=== PATIENT | male | born 1980 | race American Indian/Alaskan Native ===

== ENCOUNTER 2024-05-19 18:07 | Emergency (ER) | payer MEDICAID, SELFPAY ==
[2024-05-19 18:08] VITALS: BP 140/87; PULSE 97; RESP 18; TEMP 36.8; O2SAT 98; BMI 38.6
[2024-05-19 18:15] VITALS: PULSE 90; RESP 18; O2SAT 99; BMI 38.6
--- NOTE | 2024-05-19 19:53 | XR_ITS ---
Examination: PA chest single view Technique: Upright PA chest single view Exam date and time: May 19, 20242034 hrs. Comparison August 09, 2023 Indications: Chest pain today. Findings: Normal heart size Lungs are clear. The osseous structures are intact Impression: No active disease
--- NOTE | 2024-05-19 19:53 | XR_ITS ---
Examination: Duplex scan of the lower extremity, unilateral left complete Date and time of exam: May 19, 1999 202 hrs. Indications: Onset left leg pain today Technique: Duplex scan of the extremity veins using B-mode/grayscale imaging and Doppler spectral analysis and color flow Attention is directed to internal echogenicity, compression and augmentation involving these veins, color flow assessment, spectral analysis Findings: Major deep venous structures in the extremity demonstrate normal course and caliber. There is no evidence of deep vein thrombosis. Normal color flow and spectral analysis Impression: Negative for DVT..
--- NOTE | 2024-05-19 19:55 | EKG_ITS ---
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1980 Requested By: Roxana Truong Order Number: [id number] Reading MD: Roxana Truong Measurements Intervals Ferguson Rate: 101 P: 21 SD: 116 QRS: 41 QRSD: 103 T: -7 QT: 340 QTc: 443 Interpretive Statements SINUS TACHYCARDIA WITH SHORT SD INTERVAL INCOMPLETE RIGHT BUNDLE BRANCH BLOCK [90+ ms QRS DURATION, TERMINAL R IN V1/V2, 40+ ms S IN I/aVL/V4/V5/V6] POSSIBLE SEPTAL MYOCARDIAL INFARCTION , PROBABLY OLD [30 ms Q WAVE IN V1/V2] POSSIBLE INFERIOR MYOCARDIAL INFARCTION , OF INDETERMINATE AGE [30 ms Q WAVE IN II/aVF] Compared to ECG 08/09/2023 09:59:22 Short SD interval now present Incomplete right bundle-branch block now present Myocardial infarct finding now present Sinus rhythm no longer present /store/S0/[id number]/ecg/[id number].pdf
--- NOTE | 2024-05-19 19:56 | PD.EDCHEST ---
ED Chest Pain RME/HPI General Chief Complaint: Chest Pain Stated Complaint: CHEST PAIN Time Seen by Provider: 05/19/24 19:18 Arrival date/time: 05/19/24 18:07 RME / HPI RME / HPI narrative: 43-year-old male patient with significant history of diabetes mellitus, came in for evaluation regarding left-sided chest pain. Onset of symptoms as left-sided chest pain, described as burning-like sensation, severity moderate. Onset of symptoms since 5 PM today. Patient also complained of left lower leg pain and tingling sensation, for several days now. Patient denies any cough denies any other complaints no medications taken prior to arrival. Related Data Home Medications ?Medication ?Instructions ?Recorded ?Confirmed atorvastatin 10 mg tablet 10 mg PO QDAY 09/05/21 09/05/21 metformin 500 mg tablet,extended 500 mg PO QDAY 09/05/21 09/05/21 release 24 hr Previous Rx's ?Medication ?Instructions ?Recorded gabapentin 300 mg capsule 300 mg PO TID #60 caps 09/05/21 ondansetron 4 mg disintegrating 4 mg PO Q12H PRN nausea and 06/22/22 tablet vomiting #4 tabs ibuprofen 800 mg tablet 800 mg PO Q8H PRN pain #20 tabs 03/18/23 pantoprazole 40 mg tablet,delayed 40 mg PO QDAY #30 tabs 05/19/24 release (Protonix) Allergies Allergy/AdvReac Type Severity Reaction Status Date / Time cantaloupe Allergy Intermediate Swelling Verified 03/18/23 08:59 of Lip/Tongue/Throat Review of Systems Review of Systems Narrative Review of Systems: Review of system reviewed and within normal limits except mentioned in HPI ED Exam Narrative Physical exam: VITAL SIGNS: Reviewed. GENERAL APPEARANCE: Alert and interactive, follows commands, no acute distress, HEAD AND FACE: Non-traumatic. ENT: PERRL, pink conjunctivitis, eyelid no trauma, Mucous membrane moist. NECK: Supple, nontender, no nuchal rigidity. CHEST: No tenderness, no crepitus, no paradoxical movement, no retractions. LUNGS: Clear, well ventilated, symmetric, no rales, no wheezing, no ronchi, no stridor, good breath sounds bilaterally. HEART: Regular rate, regular rhythm, no murmur, no gallops. ABDOMEN: Soft, positive bowel sounds, nondistended, no guarding, nontender, no rebound, no masses, RECTAL: Deferred. GENITAL: Deferred. NEUROLOGICAL: Gross motor function intact sensory function intact, Appropriate for age. MUSCULOSKELETAL: low back nontender, full range of motion. EXTREMITIES: Left lower leg tenderness, mild swelling, no redness, full range of motion. SKIN: Color pink, dry, no rash, no lacerations, no abrasions, no contusions. LYMPHATICS: Deferred. Course Quality Measures none Orders Category Date Time Status EKG (ED ONLY) *Do not use* NOW Care 05/19/24 19:55 Completed EKG (ED Only) Stat Exams 05/19/24 19:55 Draft US venous doppler LE LT Stat Exams 05/19/24 19:53 Completed XR chest 1V Stat Exams 05/19/24 19:53 Completed B-Type Natriuretic Peptide Stat Lab 05/19/24 21:01 Completed CBC Stat Lab 05/19/24 21:01 Completed Comprehensive Metabolic Panel Stat Lab 05/19/24 21:01 Completed Drug Screen,Urine Stat Lab 05/19/24 20:27 Completed Partial Thromboplastin Time Stat Lab 05/19/24 21:01 Completed Prothrombin Time with INR Stat Lab 05/19/24 21:01 Completed Troponin I Stat Lab 05/19/24 21:01 Completed Urinalysis, C/S if Indicated Stat Lab 05/19/24 20:27 Completed Vital Signs Vital signs: Vital Signs Temperature 98.2 F 05/19/24 18:08 Pulse Rate 97 05/19/24 18:08 Respiratory Rate 18 05/19/24 18:08 Blood Pressure 140/87 H 05/19/24 18:08 Pulse Oximetry (%) 98 05/19/24 18:08 Oxygen Delivery Method Nasal Cannula 05/19/24 18:08 Oxygen Flow Rate 2 05/19/24 18:08 Chest Pain MDM Narrative MDM Narrative:: 43-year-old male patient with significant history of diabetes mellitus, came in for evaluation regarding left-sided chest pain. Onset of symptoms as left-sided chest pain, described as burning-like sensation, severity moderate. Onset of symptoms since 5 PM today. Patient also complained of left lower leg pain and tingling sensation, for several days now. Patient denies any cough denies any other complaints no medications taken prior to arrival. Patient's cardiac workup today all came back normal. Troponin is normal. Ultrasound of the leg came back unremarkable. Chest x-ray also came back normal. Patient tested positive for marijuana. Patient data External records reviewed:: None Clinical information provided by:: none Social determinants that could affect healthcare access:: none Patient has the following chronic illnesses:: None How is presenting disease/condition affected by chronic disease/condition?: no chronic disease Evaluation data The following diagnostics were reviewed and interpreted by me:: lab results, radiology exam(s) and EKG tracing(s) Lab and/or radiology exams considered but not ordered:: None Interpretation Summary: EKG as interpreted by me showed sinus rhythm, ventricular rate of 101 bpm, MD interval 126 MS, no ST segment elevation depression noted. I personally reviewed and interpreted the x-ray of this patient. There is no acute abnormalities found, no infiltrates no pneumothorax no hemothorax normal chest x-ray. Review of other structures was without significant abnormal findings also. I additionally reviewed the radiologist report and agree with the interpretation. Medications / Prescriptions Medications or Prescriptions considered but not ordered:: None Medication administrations:: None Consultations Consultation(s) initiated? (list below): No Diagnosis Chest Pain Differential Diagnosis: costochondritis and chest pain Most likely diagnosis given after review of the tests above:: Leg pain, chest pain Admission Indicated Admission indicated?: not indicated Admission Request Was there a request for admission?: No Disposition Plan Disposition Plan: Discharge Discharge Attestation Discharge Attestation: The patient and all family members were given an opportunity to ask questions and understood the discharge instructions. Discharge instructions specifically effects, indications for sooner follow up or return to the emergency department, and the expected course of current diagnosis. Patient condition: Stable Discharge Plan Plan Patient Disposition: HOME (Self Care) Disposition Comment: stable Prescriptions/Referrals Prescriptions/Med Rec: New pantoprazole [Protonix] 40 mg tablet,delayed release (DR/EC) 40 mg PO QDAY Qty: 30 0RF No Action atorvastatin 10 mg Tablet 10 mg PO QDAY metformin 500 mg Tablet Extended Release 24 Hr 500 mg PO QDAY gabapentin 300 mg capsule 300 mg PO TID Qty: 60 0RF Rx Instructions: Start 300mg po x1 day, then 300mg po BID x1 day, then 300mg po TID. Continue to take TID ondansetron 4 mg tablet,disintegrating 4 mg PO Q12H PRN (Reason: nausea and vomiting) Qty: 4 0RF ibuprofen 800 mg tablet 800 mg PO Q8H PRN (Reason: pain) Qty: 20 0RF Referrals: Mishel Fernandez PA-C ([facility]) [Primary Care Provider] - In 1 week Problem List Clinical Impression: Chest pain, Leg pain Patient/Caregiver Discharge Instructions Discharge Activity: activity as tolerated Education Materials: ED Chest Pain, Uncertain Cause Additional Instructions: Thank you for the opportunity for serving you today. You are stable for discharged . You are advised to: Follow-up with your PCP in 1 to 2 days Return to ED for worsening of symptoms Increase oral fluids Take medication as prescribed Print Language: Swedish Stand Alone Forms: Malika Award Info., Patient Portal Info Letter MARLYN/LEONOR Supervising Physician MARLYN/LEONOR Supervising Physician: MD Stephen
[2024-05-19 20:43] LABS: Collection Type, Urine Clean Catch; Squamous Epithelial Cell,Urine 0 /hpf (0-5)
[2024-05-19 21:03] LABS: Bilirubin,Urine Negative (Negative); Blood,Urine Negative (Negative); Clarity,Urine Clear (Clear/Hazy); Color,Urine Yellow (Lt Yel-Yel); Culture Indicated,Urine Not Indicated; Glucose, Urine Negative (Negative); Ketones,Urine Negative (Negative); Leukocyte Esterase,Urine Negative (Negative); Nitrite,Urine Negative (Negative); Protein,Urine Trace (Neg - Trace); RBC,Urine 1 /hpf (0-3); Urobilinogen,Urine Negative mg/dL (0.0-1.0); WBC,Urine 1 /hpf (0-5)
[2024-05-19 21:22] LABS: Basophils % (Auto) 0 % (0-2.5); Eosinophils # (Auto) 0.3 Thou/mm3 (0.0-0.5); Eosinophils % (Auto) 2 % (0-10); Hematocrit 44.7 % (41.0-53.0); Hemoglobin 15.8 g/dL (13.5-16.0); Immature Granulocytes % (Auto) 1 % (0-0); Immature Granulocytes Auto 0.07 Thou/mm3 (0.00-0.00); Lymphocytes # (Auto) 5.2 Thou/mm3 (1.0-4.8); Lymphocytes % (Auto) 35 % (10-50); Mean Corpuscular HGB Conc 35.3 g/dl (31.0-37.0); Mean Corpuscular Hemoglobin 30.5 pg (25.0-35.0); Mean Corpuscular Volume 86 fL (80-100); Monocytes # (Auto) 0.8 Thou/mm3 (0.0-0.8); Monocytes % (Auto) 5 % (0-12); Neutrophils # (Auto) 8.4 Thou/mm3 (1.8-7.7); Neutrophils % (Auto) 57 % (37-80); Nucleated Red Blood Cell % 0 /100 WBC (0); Platelet Count 296 Thou/mm3 (140-440); Red Blood Count 5.18 Miln/mm3 (4.50-5.90); White Blood Count 14.7 Thou/mm3 (3.8-10.6)
[2024-05-19 21:30] LABS: Partial Thromboplastin Time 27.6 Seconds (22.0-36.0); Prothrombin Time 10.6 Seconds (9.0-12.2)
[2024-05-19 21:34] LABS: Amphetamine/Methamp Scrn,U Negative (Negative); Barbiturate Screen,Urine Negative (Negative); Benzodiazepines Screen,Urine Negative (Negative); Benzoylecgonine Screen, Ur Negative (Negative); Fentanyl Screen,Urine Negative (Negative); Opiate Screen,Urine Negative (Negative); THC Screen,Urine Positive (Negative)
[2024-05-19 21:46] LABS: Alanine Aminotransferase 54 U/L (10-49); Albumin, Serum 4.8 gm/dL (3.5-5.0); Albumin/Globulin Ratio 1.7 (1.2-2.2); Alkaline Phosphatase 83 U/L (46-116); Anion Gap 9 (7-16); Aspartate Amino Transferase 43 U/L (0-34); BUN/Creatinine Ratio 14 Ratio (12-20); Bilirubin,Total 0.6 mg/dL (0.3-1.2); Blood Urea Nitrogen 15 mg/dL (9-23); Carbon Dioxide 22.9 mMol/L (20.0-31.0); Chloride 106 mMol/L (98-107); Creatinine (Component) 1.1 mg/dL (0.6-1.3); Estimated Creatinine Clearance 120.4 mL/min (>60); Globulin 2.8 gm/dL (2.3-3.5); Glucose 135 mg/dL (74-106); Osmolality,Calculated 278 (275-295); Potassium 3.7 mMol/L (3.4-5.1); Sodium 138 mMol/L (136-145); Total Protein 7.6 gm/dL (5.7-8.2); Troponin I < 0.002 ng/mL (0.0-0.045); eGFR > 60 See Note
[2024-05-19 21:48] LABS: B-Type Natriuretic Peptide < 0 pg/mL (0-100)
== END 2024-05-19 22:29 | disposition home or self-care (01) ==
PROVIDERS: Nurse Practitioner Family; Emergency Provider Emergency Medicine; PCP Nurse Practitioner Family
DX: R07.89 Other chest pain (principal); M79.662 Pain in left lower leg; E11.9 Type 2 diabetes mellitus without complications
CPT/HCPCS: 36415; 71045; 80053; 80307; 81001; 83880; 84484; 85025; 85610; 85730; 93005; 93971; 99284